=== PATIENT | male | born 1995 | race Hispanic/Latino ===

== ENCOUNTER 2018-06-09 21:06 | Emergency (ER) | payer BC ==
[2018-06-09 21:06] VITALS: BMI 23.7
[2018-06-09 21:42] VITALS: BP 119/63; PULSE 59; RESP 18; TEMP 98.3; O2SAT 98
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
[2018-06-10] MEDS ORDERED: Bacitracin 500 Units/gm Oint Foilpak UD ONE (00:41)
--- NOTE | 2018-06-10 12:29 | RAD ---
PROCEDURE: Right Hand Radiographs. HISTORY: laceration over 2nd MCP last night COMPARISON: None. TECHNIQUE: 3 views obtained. FINDINGS: BONES: Normal. No fracture. JOINTS: Normal. No osteoarthritic changes. SOFT TISSUES: Normal. OTHER FINDINGS: None. IMPRESSION: Normal right hand radiographs.
== END 2018-06-10 01:03 | disposition home or self-care (01) ==
LOC: ED 21:06
DX: S61.411A Laceration without foreign body of right hand, initial encounter (principal); W25.XXXA Contact with sharp glass, initial encounter